=== PATIENT | male | born 1990 | race Caucasian/White ===

== ENCOUNTER 2016-07-16 01:25 | Emergency (ER) | payer OTHER ==
[~2016-07-16] VITALS: Ht 167.6 cm; Wt 96.5 kg
[~2016-07-16 01:25] MED LIST: BACTDS PO; METR500T PO
[2016-07-16 01:32] VITALS: Ht 167.6 cm; Wt 96.5 kg
[2016-07-16] MEDS ORDERED: morphine 4 MG/ML VIAL IV STA (01:40)
[2016-07-16] MEDS ORDERED: ONDANSETRON 4 MG INJ IV STA (01:40)
[2016-07-16] MEDS ORDERED: SOD CHLORIDE 0.9% 1,000 ML IV STA (01:40)
[2016-07-16 01:54] LABS: ADD SCAN DIFF NO
[2016-07-16 01:55] LABS: BASOPHIL # 0.1 10^3/ul (0.0-0.1); BASOPHILS % 0.5 % (0.0-2.0); EOSINOPHILS # 0.1 10^3/ul (0.0-0.5); EOSINOPHILS % 1.1 % (0.0-7.0); HEMATOCRIT 45.1 % (42.0-52.0); HEMOGLOBIN 16.2 g/dl (14.0-18.0); LYMPHOCYTES # 2.2 10^3/ul (0.8-2.9); MEAN CORPUSCULAR HEMOGLOBIN 30.3 pg (29.0-33.0); MEAN CORPUSCULAR HGB CONC 35.9 g/dl (32.0-37.0); MEAN CORPUSCULAR VOLUME 84.5 fl (82.0-101.0); MEAN PLATELET VOLUME 9.9 fl (7.4-10.4); MONOCYTES % 7.5 % (0.0-11.0); NEUTROPHIL # 9.3 10^3/ul (1.6-7.5); NEUTROPHILS % 73.3 % (39.0-77.0); PLATELET COUNT 280 10^3/UL (140-415); RED BLOOD COUNT 5.34 10^6/ul (4.70-6.10); RED CELL DISTRIBUTION WIDTH 12.2 % (11.5-14.5); WHITE BLOOD COUNT 12.7 10^3/ul (4.8-10.8)
[2016-07-16 02:11] LABS: ALBUMIN 4.8 g/dl (3.3-4.9)
[2016-07-16 02:12] LABS: POTASSIUM 4.1 mmol/L (3.5-5.1)
[2016-07-16 02:13] LABS: CREATININE 0.96 mg/dl (0.61-1.24)
[2016-07-16 02:14] LABS: ALBUMIN/GLOBULIN RATIO 1.41; BILIRUBIN,INDIRECT 0.3 mg/dl (0-1.1); BILIRUBIN,TOTAL 0.3 mg/dl (0.2-1.3); CALCIUM 9.3 mg/dl (8.4-10.2); TOTAL PROTEIN 8.2 g/dl (6.1-8.1)
[2016-07-16 02:38] LABS: URINE BLOOD (Dip) POC Trace-intact (NEGATIVE)
[2016-07-16 02:59] LABS: ADD UMIC YES; URINE BILIRUBIN (Dip) NEGATIVE (NEGATIVE); URINE BLOOD (Dip) TRACE (NEGATIVE); URINE COLOR LT. YELLOW (YELLOW); URINE GLUCOSE (Dip) NEGATIVE (NEGATIVE); URINE KETONES (Dip) NEGATIVE (NEGATIVE); URINE LEUKOCYTE ESTERASE (Dip) NEGATIVE (NEGATIVE); URINE NITRITE (Dip) NEGATIVE (NEGATIVE); URINE TOTAL PROTEIN (Dip) NEGATIVE (NEGATIVE); URINE UROBILINOGEN (Dip) 0.2 E.U./dL (0.1-1.0)
--- NOTE | 2016-07-16 03:14 | RADRPT ---
PROCEDURE: CT Abdomen and Pelvis without contrast. CLINICAL INDICATION: Abdominal pain TECHNIQUE: CT scan of the abdomen and pelvis without contrast was performed on a multidetector hig h-resolution CT scanner. The patient was scanned without intravenous contrast. No oral contrast was administered. Coronal and sagittal reformatted images were obtained from the axial source images. Im ages were reviewed on a high-resolution PACS workstation. The total exam CTDI equals 16.04 mGy and the total exam DLP equals 1064.29 mGy-cm. One or more of the following dose reduction techniques were used: - Automated exposure control. - Adjustment of the mA and/or kV according to patient size. - Use of iterative reconstruction technique. COMPARISON: 02/20/2016 FINDINGS: Lungs: Minimal dependent atelectasis is seen in the posterior lower lungs. Minimal linear atelectas is/fibrosis is seen at the lung bases. Liver: Asymmetric hepatic steatosis. Gallbladder: No abnormality seen. Spleen: No abnormality seen. Stomach: The stomach is not fully distended. No gross abnormality seen. Pancreas: No abnormality seen. Adrenals: No abnormality seen. Kidneys: No abnormality seen. Abdominal aorta: No aneurysm seen. Lymph nodes: No enlarged lymph nodes are seen. Small bowel: No dilated small bowel loops are seen. Colon: Diverticula in the sigmoid, descending and transverse colon. There is wall thickening in an approximate 7 cm long segment of the proximal to mid sigmoid colon with soft tissue stranding in the adjacent fat consistent with acute diverticulitis. No pericolonic abscess or extraluminal air is s een. Appendix: No abnormality seen. Bladder: No abnormality seen Pelvic organs: No abnormality seen Ascites: Trace ascites in the right mid anterior and posterior pelvis. Osseous structures: No abnormality seen. IMPRESSION: Colonic diverticulosis. Consistent with acute proximal to mid sigmoid colon diverticulitis again se en. Trace ascites in right pelvis. Asymmetric hepatic steatosis again seen. Please see above. RPTAT: HJES .Luisito Braswell MD, Date Time Electronically viewed and signed by .Luisito Braswell MD, MD on 07/16/2016 03:13 .S/
[2016-07-16] MEDS ORDERED: CIPR500T4 PO (03:26)
[2016-07-16] MEDS ORDERED: TRAM50TA2 PO (03:26)
[2016-07-16] MEDS ORDERED: METR500T PO (03:26)
--- NOTE | 2016-07-16 03:29 | ERD ---
ER Documentation Chief Complaint Date/Time DATE: 07/16/16 TIME: 03:27 Chief Complaint Diverticulitis per pt's verbatum. AP x2 days HPI This is a 26-year-old male comes in with complaints of abdominal pain and diarrhea for the past 2-3 days. No other current complaints. Pain is mild to moderate in intensity. 2 episodes of diarrhea which are nonbloody. ROS All systems reviewed and are negative except as per history of present illness. Medications Home Meds Active Scripts Tramadol HCl (Tramadol HCl) 50 Mg Tablet, 50 MG PO Q4 Y for PAIN, #20 TAB Prov:IVONE BYRNESEL S. 07/16/16 Metronidazole* (Flagyl*) 500 Mg Tablet, 500 MG PO TID for 7 Days, TAB Prov:MOGHADAM,BUBBA S. 07/16/16 Ciprofloxacin Hcl* (Ciprofloxacin Hcl*) 500 Mg Tablet, 500 MG PO BID for 7 Days , TAB Prov:MOGHADAM,BUBBA S. 07/16/16 Metronidazole* (Flagyl*) 500 Mg Tablet, 500 MG PO TID for 7 Days, TAB Prov:BIANCA HARDING 02/21/16 Sulfamethoxazole-Trimethoprim* (Bactrim* DS) 800-160 Mg Tab, 1 TAB PO BID for 7 Days, TAB Prov:BIANCA HARDING C 02/21/16 Allergies Allergies: Coded Allergies: No Known Allergy (Unverified , 07/16/16) PMhx/Soc History of Surgery: Yes (ORTHOPEDIC FOR ARM CHILDHOOD) Anesthesia Reaction: No Hx Neurological Disorder: No Hx Respiratory Disorders: No Hx Cardiac Disorders: No Hx Psychiatric Problems: No Hx Miscellaneous Medical Probl: Yes (diverticulitis) Hx Alcohol Use: No Hx Substance Use: No Hx Tobacco Use: No Smoking Status: Unknown if ever smoked Physical Exam Vitals Vital Signs Date Time Temp Pulse Resp B/P Pulse Ox O2 Delivery O2 Flow Rate FiO2 07/16/16 01:32 100.9 97 18 143/91 97 Physical Exam Const: [] Head: Atraumatic Eyes: Normal Conjunctiva ENT: Normal External Ears, Nose and Mouth. Neck: Full range of motion..~ No meningismus. Resp: Clear to auscultation bilaterally Cardio: Regular rate and rhythm, no murmurs Abd: Soft, non tender, non distended. Normal bowel sounds Skin: No petechiae or rashes Back: No midline or flank tenderness Ext: No cyanosis, or edema Neur: Awake and alert Psych: Normal Mood and Affect Result Diagram: 07/16/1614607/16/167 Results 24 hrs Laboratory Tests Test 07/16/16 01:47 07/16/16 02:30 07/16/16 02:41 Alanine Aminotransferase (ALT/SGPT) 74IU/L Albumin 4.8g/dl Albumin/Globulin Ratio 1.41 Alkaline Phosphatase 76IU/L Anion Gap 19 Aspartate Amino Transf (AST/SGOT) 30IU/L Basophils # 0.110^3/ul Basophils % 0.5% Blood Urea Nitrogen 11mg/dl Calcium Level 9.3mg/dl Carbon Dioxide Level 25mmol/L Chloride Level 101mmol/L Creatinine 0.96mg/dl Direct Bilirubin 0.00mg/dl Eosinophils # 0.110^3/ul Eosinophils % 1.1% Globulin 3.40g/dl Glucose Level 118mg/dl Hematocrit 45.1% Hemoglobin 16.2g/dl Indirect Bilirubin 0.3mg/dl Lipase 46U/L Lymphocytes # 2.210^3/ul Lymphocytes % 17.0% Mean Corpuscular Hemoglobin 30.3pg Mean Corpuscular Hemoglobin Concent 35.9g/dl Mean Corpuscular Volume 84.5fl Mean Platelet Volume 9.9fl Monocytes # 1.010^3/ul Monocytes % 7.5% Neutrophils # 9.310^3/ul Neutrophils % 73.3% Nucleated Red Blood Cells # 0.010^3/ul Nucleated Red Blood Cells % 0.0/100WBC Platelet Count 51715^3/UL Potassium Level 4.1mmol/L Red Blood Count 5.3410^6/ul Red Cell Distribution Width 12.2% Sodium Level 141mmol/L Total Bilirubin 0.3mg/dl Total Protein 8.2g/dl White Blood Count 12.710^3/ul Urine Bilirubin NEGATIVE Urine Clarity CLEAR Urine Color LT. YELLOW Urine Glucose NEGATIVE% Urine Hemoglobin TRACE Urine Ketones NEGATIVE Urine Leukocyte Esterase NEGATIVE Urine Microscopic RBC 2-5/HPF Urine Microscopic WBC 0-2/HPF Urine Nitrite NEGATIVE Urine Specific [place] 1.010 Urine Total Protein NEGATIVE Urine Urobilinogen 0.2 E.U./dL Urine pH 6.0 Bedside Urine Blood Trace-intact Bedside Urine Glucose (UA) Negative Bedside Urine Ketones (LAB) Negative Bedside Urine Leukocyte Esterase (L Negative Bedside Urine Nitrite (LAB) Negative Bedside Urine Protein (LAB) Negative Bedside Urine pH (LAB) 7.0 Current Medications Medications (Trade) Dose Ordered Sig/Raj Route PRN Reason Start Time Stop Time Status Last Admin Dose Admin Sodium Chloride (NS) 1,000 ml @ 1,000 mls/hr Q1H STAT IV 07/16/16 01:40 07/16/16 02:39 DC 07/16/16 01:52 Morphine Sulfate (morphine) 4 mg ONCE STAT IV 07/16/16 01:40 07/16/16 01:41 DC Ondansetron HCl (Zofran Inj) 4 mg ONCE STAT IV 07/16/16 01:40 07/16/16 01:41 DC Procedures/MDM Medical decision-making: This patient comes in with acute diverticulitis. At this point is clinically stable for outpatient management[facility] hours for serial abdominal examinations Departure Diagnosis: Primary Impression: Abdominal pain Abdominal location: unspecified location Qualified Code: R10.9 - Abdominal pain, unspecified location Condition: Stable Patient Instructions: Diverticulitis BUBBA BYRNES Jul 16, 2016 03:29
[2016-07-16 04:05] VITALS: BP 146/92; PULSE 87; RESP 18
== END 2016-07-16 04:05 | disposition home or self-care (01) ==
LOC: E/R 01:25
DX: R10.9 Unspecified abdominal pain (principal)
CPT/HCPCS: 36415; 74176; 80053; 81001; 83690; 85025; J7030; Z7502; Z7610; 81003; J2270; J2405